=== PATIENT | male | born 2000 | race African-American/Black ===

== ENCOUNTER → 2020-08-03 | Outpatient (CLI) | payer OTHER ==
--- NOTE | 2020-08-04 07:59 | RAD ---
EXAMINATION: CT abdomen and pelvis without IV contrast. INDICATION:20 years, Male, hematuria. TECHNIQUE: Axial CT images of the abdomen and pelvis were obtained. Coronal and sagittal reformatted performed. COMPARISON: None. Exposure: One or more of the following individualized dose reduction techniques were utilized for thi s examination: 1. Automated exposure control 2. Adjustment of the mA and/or kV according to patient size 3. Use of iterative reconstruction technique. FINDINGS: LOWER CHEST: Unremarkable ABDOMEN/PELVIS: Within limitation of noncontrast exam, Liver, gallbladder, biliary ducts, spleen and adrenals are unremarkable. Borderline splenomegaly codie ures up to 12.8 cm. No hydronephrosis or nephrolithiasis in either kidney. No bowel obstruction or wa ll thickening. Normal appendix. Normal caliber abdominal aorta. No pneumoperitoneum or ascites. No ab dominopelvic lymphadenopathy. Unremarkable urinary urinary bladder and prostate. No suspicious pelvic masses.. MUSCULOSKELETAL: No acute osseous process. IMPRESSION: No obstructive uropathy or urolithiasis. Electronically signed by: Carlos Serrato MD (08/04/2020 7:57 AM) [id number]
== END ==
LOC: CT 18:15
PROVIDERS: ATTEND Family Medicine
DX: R31.9 Hematuria, unspecified (principal)
CPT/HCPCS: 74176